=== PATIENT | female | born 1970 | race Caucasian/White ===

== ENCOUNTER 2017-10-11 00:14 | Emergency (ER) | payer MEDICAID, OTHER ==
[~2017-10-11] VITALS: Ht 165.1 cm; Wt 75.0 kg
[2017-10-11 00:36] VITALS: BP 115/65; PULSE 86; RESP 16; TEMP 98.6; O2SAT 97
--- NOTE | 2017-10-11 00:36 | PD ---
HPI Chief Complaint: Hansen act Time Seen by Provider: 00:33 Travel History International Travel<30 days: No Contact w/Intl Traveler<30days: No Traveled to known affect area: No History of Present Illness HPI Examined in the presence of a female nurse at all times. 47-year-old female history of HIV, hepatitis C, schizoaffective disorder presents under Hansen act initiated by the Police Department. According to her paperwork, "subject was reported to be walking around [place] [address] area highly intoxicated and possibly on narcotics, and had advised her fianc it will kill me in one hour. Contact was made subject here was extremely intoxicated and cannot care for herself. Subject advised she suffers from schizophrenia and bipolar disorder and was endangering her own safety by her current state and wandered around the roadway. Subject also advises "I just want to be and everyone else once me ."" The patient is currently very intoxicated so history is limited. She is denying any suicidal or homicidal ideation. Endorses bobcat consumption tonight. Denies any was drug use. [facility] Social History Alcohol Use: Yes Tobacco Use: Yes Review of Systems ROS Limitations: Intoxication Except as stated in HPI: all other systems reviewed are Neg Physical Exam Narrative Examined in the presence of female nurse GENERAL: Disheveled female in no acute distress grossly intoxicated SKIN: Warm and dry. HEAD: Atraumatic. Normocephalic. EYES: Pupils equal and round. No scleral icterus. No injection or drainage. ENT: No nasal bleeding or discharge. Mucous membranes pink and moist. NECK: Trachea midline. No JVD. CARDIOVASCULAR: Regular rate and rhythm. No murmur appreciated. RESPIRATORY: No accessory muscle use. Clear to auscultation. Breath sounds equal bilaterally. GASTROINTESTINAL: Abdomen soft, non-tender, nondistended. Hepatic and splenic margins not palpable. MUSCULOSKELETAL: No obvious deformities. No clubbing. No cyanosis. No edema. NEUROLOGICAL: Awake and alert. No obvious cranial nerve deficits. Motor grossly within normal limits. Slurred speech. PSYCHIATRIC: Intoxicated, insight and judgment are therefore limited. Data Data Last Documented VS Vital Signs Date Time Temp Pulse Resp B/P (MAP) Pulse Ox O2 Delivery O2 Flow Rate FiO2 10/11/17 00:36 98.6 86 16 115/65 (82) 97 Room Air Orders Orders Complete Blood Count With Diff (10/11/17 00:28) Comprehensive Metabolic Panel (10/11/17 00:28) Ed Urine Pregnancytest Poc (10/11/17 00:28) Psych Screen (10/11/17 00:) Drug Screen, Random Urine (10/11/17 00:28) Alcohol (Ethanol) (10/11/17 00:28) Salicylates (Aspirin) (10/11/17 00:28) Tylenol (Acetaminophen) (10/11/17 00:28) Labs Laboratory Tests Test 10/11/17 00:25 10/11/17 01:05 Urine Opiates Screen NEG Urine Barbiturates Screen NEG Urine Amphetamines Screen NEG Urine Benzodiazepines Screen NEG Urine Cocaine Screen NEG Urine Cannabinoids Screen NEG White Blood Count 5.4 TH/MM3 Red Blood Count 4.63 MIL/MM3 Hemoglobin 13.3 GM/DL Hematocrit 40.9 % Mean Corpuscular Volume 88.3 FL Mean Corpuscular Hemoglobin 28.8 PG Mean Corpuscular Hemoglobin Concent 32.6 % Red Cell Distribution Width 16.8 % Platelet Count 382 TH/MM3 Mean Platelet Volume 7.7 FL Neutrophils (%) (Auto) 47.8 % Lymphocytes (%) (Auto) 40.0 % Monocytes (%) (Auto) 9.3 % Eosinophils (%) (Auto) 2.0 % Basophils (%) (Auto) 0.9 % Neutrophils # (Auto) 2.6 TH/MM3 Lymphocytes # (Auto) 2.2 TH/MM3 Monocytes # (Auto) 0.5 TH/MM3 Eosinophils # (Auto) 0.1 TH/MM3 Basophils # (Auto) 0.0 TH/MM3 CBC Comment DIFF FINAL Differential Comment Blood Urea Nitrogen 9 MG/DL Creatinine 1.02 MG/DL Random Glucose 119 MG/DL Total Protein 7.5 GM/DL Albumin 3.3 GM/DL Calcium Level 8.5 MG/DL Alkaline Phosphatase 48 U/L Aspartate Amino Transf (AST/SGOT) 32 U/L Alanine Aminotransferase (ALT/SGPT) 32 U/L Total Bilirubin 0.1 MG/DL Sodium Level 143 MEQ/L Potassium Level 3.6 MEQ/L Chloride Level 108 MEQ/L Carbon Dioxide Level 26.4 MEQ/L Anion Gap 9 MEQ/L Estimat Glomerular Filtration Rate 58 ML/MIN Salicylates Level LESS THAN 1.7 MG/DL Acetaminophen Level LESS THAN 2.0 MCG/ML Ethyl Alcohol Level 239 MG/DL MDM Medical Decision Making Medical Screen Exam Complete: Yes Emergency Medical Condition: Yes Medical Record Reviewed: Yes Differential Diagnosis Alcohol intoxication, polysubstance abuse, acute psychosis, adjustment reaction , major depressive disorder, schizophrenia, schizoaffective disorder Narrative Course 47-year-old female presents under Hansen act for psychiatric evaluation. Mental health screening discussed with the patient. Psychiatric screen ordered. Alcohol level is 239. The patient is medically cleared for psychiatric disposition. Diagnosis Primary Impression: Alcohol intoxication Ricci Garcia Oct 11, 2017 00:36
[2017-10-11 01:26] LABS: AUTOMATED NEUTROPHIL # 2.6 TH/MM3 (1.8-7.7); BASOPHIL % 0.9 % (0.0-2.0); EOSINOPHIL # 0.1 TH/MM3 (0-0.4); HEMATOCRIT 40.9 % (35.0-46.0); HEMO FLAGS DIFF FINAL; LYMPHOCYTE # 2.2 TH/MM3 (1.0-4.8); MEAN CELL VOLUME 88.3 FL (80.0-100.0); MEAN CORPUSCULAR HEMOGLOBIN 28.8 PG (27.0-34.0); MEAN CORPUSCULAR HGB CONC 32.6 % (32.0-36.0); MONO % 9.3 % (0.0-8.0); NEUT % 47.8 % (16.0-70.0); PLATELET COUNT 382 TH/MM3 (150-450); RED BLOOD COUNT 4.63 MIL/MM3 (4.00-5.30); RED CELL DISTRIBUTION WIDTH 16.8 % (11.6-17.2); WHITE BLOOD COUNT 5.4 TH/MM3 (4.0-11.0)
[2017-10-11 01:41] LABS: ALT (GPT) 32 U/L (10-53); ANION GAP 9 MEQ/L (5-15); AST (GOT) 32 U/L (15-37); BICARBONATE 26.4 MEQ/L (21.0-32.0); BLOOD UREA NITROGEN 9 MG/DL (7-18); CHLORIDE 108 MEQ/L (98-107); GLOMERULAR FILTRATION RATE 58 ML/MIN (>89); POTASSIUM 3.6 MEQ/L (3.5-5.1); SODIUM (NA) 143 MEQ/L (136-145)
[2017-10-11 01:43] LABS: ALKALINE PHOSPHATASE 48 U/L (45-117); TOTAL BILIRUBIN ADULT 0.1 MG/DL (0.2-1.0)
[2017-10-11 01:44] LABS: ACETAMINOPHEN LESS THAN 2.0 MCG/ML (10.0-30.0); ALCOHOL 239 MG/DL (0-5)
[2017-10-11 06:41] VITALS: BP 101/56; PULSE 80; RESP 17
[2017-10-11 10:17] VITALS: BP 132/83; PULSE 100; RESP 18; O2SAT 98
--- NOTE | 2017-10-11 13:42 | PD ---
Physical Exam Date Seen by Provider: Oct 11, 2017 Time Seen by Provider: 13:40 Narrative 47-year-old female previously evaluated and medically cleared for psychiatric evaluation after episode of alcoholic intoxication, has been evaluated by an cleared for discharge by psychiatric services. Patient remains medically clear discharge. Patient discharged as per psychiatric plan. Data Data Last Documented VS Vital Signs Date Time Temp Pulse Resp B/P (MAP) Pulse Ox O2 Delivery O2 Flow Rate FiO2 10/11/17 10:17 100 18 132/83 (99) 98 Room Air 10/11/17 00:36 98.6 Orders Orders Complete Blood Count With Diff (10/11/17 00:28) Comprehensive Metabolic Panel (10/11/17 00:28) Ed Urine Pregnancytest Poc (10/11/17 00:28) Psych Screen (10/11/17 00:28) Drug Screen, Random Urine (10/11/17 00:28) Alcohol (Ethanol) (10/11/17 00:28) Salicylates (Aspirin) (10/11/17 00:28) Tylenol (Acetaminophen) (10/11/17 00:28) Diet Regular Basic (10/11/17 Breakfast) Diet Regular Basic (10/11/17 Lunch) Labs Laboratory Tests Test 10/11/17 00:25 10/11/17 01:05 Urine Opiates Screen NEG Urine Barbiturates Screen NEG Urine Amphetamines Screen NEG Urine Benzodiazepines Screen NEG Urine Cocaine Screen NEG Urine Cannabinoids Screen NEG White Blood Count 5.4 TH/MM3 Red Blood Count 4.63 MIL/MM3 Hemoglobin 13.3 GM/DL Hematocrit 40.9 % Mean Corpuscular Volume 88.3 FL Mean Corpuscular Hemoglobin 28.8 PG Mean Corpuscular Hemoglobin Concent 32.6 % Red Cell Distribution Width 16.8 % Platelet Count 382 TH/MM3 Mean Platelet Volume 7.7 FL Neutrophils (%) (Auto) 47.8 % Lymphocytes (%) (Auto) 40.0 % Monocytes (%) (Auto) 9.3 % Eosinophils (%) (Auto) 2.0 % Basophils (%) (Auto) 0.9 % Neutrophils # (Auto) 2.6 TH/MM3 Lymphocytes # (Auto) 2.2 TH/MM3 Monocytes # (Auto) 0.5 TH/MM3 Eosinophils # (Auto) 0.1 TH/MM3 Basophils # (Auto) 0.0 TH/MM3 CBC Comment DIFF FINAL Differential Comment Blood Urea Nitrogen 9 MG/DL Creatinine 1.02 MG/DL Random Glucose 119 MG/DL Total Protein 7.5 GM/DL Albumin 3.3 GM/DL Calcium Level 8.5 MG/DL Alkaline Phosphatase 48 U/L Aspartate Amino Transf (AST/SGOT) 32 U/L Alanine Aminotransferase (ALT/SGPT) 32 U/L Total Bilirubin 0.1 MG/DL Sodium Level 143 MEQ/L Potassium Level 3.6 MEQ/L Chloride Level 108 MEQ/L Carbon Dioxide Level 26.4 MEQ/L Anion Gap 9 MEQ/L Estimat Glomerular Filtration Rate 58 ML/MIN Salicylates Level LESS THAN 1.7 MG/DL Acetaminophen Level LESS THAN 2.0 MCG/ML Ethyl Alcohol Level 239 MG/DL [facility] Medical Record Reviewed: Yes Supervised Visit with TERENCE: Yes Narrative Course 47-year-old female previously evaluated and medically cleared for psychiatric evaluation after episode of alcoholic intoxication, has been evaluated by an cleared for discharge by psychiatric services. Patient remains medically clear discharge. Patient discharged as per psychiatric plan. Diagnosis Primary Impression: Alcohol intoxication Qualified Codes: F10.929 - Alcohol use, unspecified with intoxication, unspecified Referrals: [facility] (Out patient) call for appointment Medication Management Patient Instructions: General Instructions, Cocaine Abuse (ED) Departure Forms: Tests/Procedures Med/Other Pt SpecificInfo: No Change to Meds Disposition: 01 DISCHARGE HOME Condition: Stable Mikey Carson Oct 11, 2017 13:42
--- NOTE | 2017-10-11 13:45 | PD ---
History of Present Illness Chief Complaint: Psychiatric Symptoms Time Seen by Provider: 13:30 Travel History International Travel<30 Days: No Contact w/Intl Traveler<30days: No Known affected area: No Legal Status Legal Status: Hansen Act Hansen Act Signed By: Kike Almendarez Hansen Act Comment: BA signed by: Kike SLATER, Fan Aquino#[id number], Case# [id number] History of Present Illness: History of Present Illness HPI 47-year-old female history of HIV, hepatitis C, schizoaffective disorder bipolar type, PTSD, alcohol abuse who presents under Hansen act initiated by the Police Department. According to her paperwork, "subject was reported to be walking around [place] [address] area highly intoxicated and possibly on narcotics, and had advised her fianc "it will kill me in one hour". Contact was made subject here was extremely intoxicated and cannot care for herself. Patient was monitored in secure environment and was allowed to sober up clinically. On arrival the patient was uncooperative due to her level of intoxication.Her BAL on arrival was 239. Electronic medical record is review. No previous contact with [facility]. Patient is seen with case picker Mikey. She is alert, oriented female dressed in [facility] with fair hygiene and grooming. She is clinically sober AEB by clear speech, no gait impairment, no tremors. There is no evidence of any psychosis, no geetha, no hypomania. She denies any suicidal or homicidal ideation. She states " I drank too much and I said stupid things. I was sober and relapsed yesterday. I want to go back to where i am staying with my . I take my medication and I am currently in treatment." PFSH Past Medical History Autoimmune Disease: Yes ("I have HIV") Bipolar Disorder: Yes Anxiety: Yes Depression: Yes Hepatitis: Yes (per pt "I have Hep A, B, C") Schizophrenia: Yes ("schizoaffective" ) ?: Not Tubal Ligation: Yes (partial ) Past Surgical History Appendectomy: Yes Psychiatric History Psychiatric History Hx Psychiatric Treatment: Patient reports she has been diagnosed with bipolar schizoaffective disorder, PTSD. She is currently in treatment at [facility] in [place]. Shereports compliance with medications Social History Hx Alcohol Use: Yes (pt is currently intoxicated "1st I drank in a month") Hx Tobacco Use: Yes ("I take couple drags off my huband's") Hx Substance Use: Yes (pt denies @this time but per BA pt is possibly high on "pills" as well ) Hx of Substance Use Treatment: Yes (patient involved in AA) Family Psychiatric History Negative Review of Systems Musculoskeletal: COMPLAINS OF: Joint pain (recent fracture right hand) Mental Status Examination Appearance: Appropriate Consciousness: Alert Orientation: x4 Motor Activity: Normal gait Speech: Unremarkable Language: Adequate Fund of Knowledge: Adequate Attention and Concentration: Adequate Memory: Unremarkable Mood: Appropriate Affect: Appropriate Thought Process & Associations: Intact, Logical, Goal directed Thought Content: Appropriate Hallucination Type: None Delusion Type: None Suicidal Ideation: No Suicidal Plan: No Suicidal Intention: No Homicidal Ideation: No Homicidal Plan: No Homicidal Intention: No Insight: Fair Judgment: Impulsive MDM Medical Decision Making Medical Record Reviewed: Yes Assessment/Plan 47-year-old female history of schizoaffective disorder bipolar type, PTSD, alcohol abuse who in context of alcohol intoxication was placed under a Hansen act initiated by the Police Department. According to her paperwork, "subject was reported to be walking around [place] [address] area highly intoxicated and possibly on narcotics, and had advised her fianc "it will kill me in one hour". Contact was made subject here was extremely intoxicated and cannot care for herself. Patient was monitored in secure environment and was allowed to sober up clinically. Patient is denying any suicidal or homicidal ideation, intent or plan. Patient does not present any evidence of unstable mental illness as defined under the Hansen act. Patient is requesting to be discharge. She will follow-up with her outpatient provider in [place]. The Hansen act is lifted. Psychiatrically clear for discharge. Orders Orders Complete Blood Count With Diff (10/11/17 00:28) Comprehensive Metabolic Panel (10/11/17 00:28) Ed Urine Pregnancytest Poc (10/11/17 00:28) Psych Screen (10/11/17 00:28) Drug Screen, Random Urine (10/11/17 00:28) Alcohol (Ethanol) (10/11/17 00:28) Salicylates (Aspirin) (10/11/17 00:28) Tylenol (Acetaminophen) (10/11/17 00:28) Diet Regular Basic (10/11/17 Breakfast) Diet Regular Basic (10/11/17 Lunch) Results Vital Signs Date Time Temp Pulse Resp B/P (MAP) Pulse Ox O2 Delivery O2 Flow Rate FiO2 10/11/17 10:17 100 18 132/83 (99) 98 Room Air 10/11/17 06:41 80 17 101/56 (71) 10/11/17 00:36 98.6 86 16 115/65 (82) 97 Room Air Laboratory Tests Test 10/11/17 00:25 10/11/17 01:05 Urine Opiates Screen NEG Urine Barbiturates Screen NEG Urine Amphetamines Screen NEG Urine Benzodiazepines Screen NEG Urine Cocaine Screen NEG Urine Cannabinoids Screen NEG White Blood Count 5.4 Red Blood Count 4.63 Hemoglobin 13.3 Hematocrit 40.9 Mean Corpuscular Volume 88.3 Mean Corpuscular Hemoglobin 28.8 Mean Corpuscular Hemoglobin Concent 32.6 Red Cell Distribution Width 16.8 Platelet Count 382 Mean Platelet Volume 7.7 Neutrophils (%) (Auto) 47.8 Lymphocytes (%) (Auto) 40.0 Monocytes (%) (Auto) 9.3 Eosinophils (%) (Auto) 2.0 Basophils (%) (Auto) 0.9 Neutrophils # (Auto) 2.6 Lymphocytes # (Auto) 2.2 Monocytes # (Auto) 0.5 Eosinophils # (Auto) 0.1 Basophils # (Auto) 0.0 CBC Comment DIFF FINAL Differential Comment Blood Urea Nitrogen 9 Creatinine 1.02 Random Glucose 119 Total Protein 7.5 Albumin 3.3 Calcium Level 8.5 Alkaline Phosphatase 48 Aspartate Amino Transf (AST/SGOT) 32 Alanine Aminotransferase (ALT/SGPT) 32 Total Bilirubin 0.1 Sodium Level 143 Potassium Level 3.6 Chloride Level 108 Carbon Dioxide Level 26.4 Anion Gap 9 Estimat Glomerular Filtration Rate 58 Salicylates Level LESS THAN 1.7 Acetaminophen Level LESS THAN 2.0 Ethyl Alcohol Level 239 Diagnosis Primary Impression: Alcohol dependence with acute alcoholic intoxication Psychiatrically Cleared: Yes Referrals: [facility] (Out patient) call for appointment Medication Management Departure Forms: Tests/Procedures Patient Instructions: General Instructions, Cocaine Abuse (ED) Disposition: 01 DISCHARGE HOME Condition: Yun Amado Oct 11, 2017 13:45
[2017-10-11 13:51] VITALS: BP 132/83; PULSE 100; RESP 18; O2SAT 98
== END 2017-10-11 16:30 | disposition home or self-care (01) ==
LOC: NEPD 00:14 → NEPJ 16:30
DX: F10.229 Alcohol dependence with intoxication, unspecified (principal); F25.0 Schizoaffective disorder, bipolar type; F43.10 Post-traumatic stress disorder, unspecified; Z72.0 Tobacco use; Z21 Asymptomatic human immunodeficiency virus [HIV] infection status; Z86.19 Personal history of other infectious and parasitic diseases
CPT/HCPCS: 80053; 80307; 84703; 85025; 99283